=== PATIENT | female | born 1990 | race Caucasian/White ===

== ENCOUNTER 2016-05-19 14:59 | Emergency (ER) | payer OTHER ==
[2016-05-19 15:06] VITALS: BP 107/69; PULSE 93; TEMP 99; BMI 21.0
--- NOTE | 2016-05-19 16:50 | PDOC ---
History of Present Illness - General Chief Complaint: Sore Throat Stated Complaint: FEVER, THROAT PAIN, VOMITING Time Seen by Provider: 05/19/16 15:35 - History of Present Illness Initial Comments: 05/19/16 16:15 CHIEF COMPLAINT: sore throat, fever, vomiting HISTORY OF PRESENT ILLNESS: 26 yo F with no PMH presents to [facility] with sore throat and fever x 3 days and vomiting x 2 days. Patient reports that her sister had strep last week and "I wouldn't be surprised if I got it from her." She reports TMax 104 and has been taking Tylenol, which does bring the temperature down. She reports three episodes of vomiting 2 days ago, and two episodes yesterday but none today. She also complains of body aches and fatigue. PAST MEDICAL HISTORY: Denies past medical history FAMILY HISTORY: Denies SOCIAL HISTORY: Denies tobacco, alcohol, illicit drug use. SURGICAL HISTORY: Denies ALLERGIES: No known drug allergies REVIEW OF SYSTEMS General/Constitutional: Fever x 3 days. Denies weakness, weight change. HEENT: Sore throat. Denies change in vision. Denies ear pain or discharge. Cardiovascular: Denies chest pain or shortness of breath. Respiratory: Denies cough, wheezing, or hemoptysis. Gastrointestinal: Vomiting x 2 days. diarrhea or constipation. Denies rectal bleeding. Genitourinary: Denies dysuria, frequency, or change in urination. Musculoskeletal: Denies joint or muscle swelling or pain. Denies neck or back pain. Skin and breasts: Denies rash or easy bruising. Neurologic: Denies headache, vertigo, loss of consciousness, or loss of sensation. PHYSICAL EXAM General Appearance: Well-appearing, appropriately dressed. No apparent distress , no intoxication. HEENT: Erythematous tonsils with exudate bilaterally. EOMI, PERRLA, normal voice. No conjunctival pallor. No photophobia, scleral icterus. Neck: Supple. Trachea midline. No tenderness, rigidity, carotid bruit, stridor , lymphadenopathy, or thyromegaly. Respiratory/Chest: Lungs CTAB. Cardiovascular: RRR. S1, S2. Gastrointestinal/Abdominal: Normal bowel sounds. Abdomen soft, non-distended. No tenderness or rebound tenderness. No organomegaly, pulsatile mass, guarding , hernia, hepatomegaly, splenomegaly. Musculoskeletal/Extremities: Normal inspection. FROM of all extremities, normal capillary refill. Pelvis Stable. No CVA tenderness. No tenderness to extremities, pedal edema, swelling, erythema or deformity. Integumentary: Appropriate color, dry, warm. No cyanosis, erythema, jaundice or rash Neurologic: manager apple II-XII intact. Fully oriented, alert. Appropriate mood/affect. Motor strength 5/5. No appreciable EOM palsy, facial droop or sensory deficit. Past History - Past Medical History Allergies/Adverse Reactions: Allergies Allergy/AdvReac Type Severity Reaction Status Date / Time No Known Allergies Allergy Verified 05/19/16 15:06 Home Medications: Ambulatory Orders NK [No Known Home Medication] 05/19/16 Asthma: No Cancer: No Cardiac Disorders: No Diabetes: No HTN: No Seizures: No Thyroid Disease: No - Psycho/Social/Smoking Cessation Hx Anxiety: No Suicidal Ideation: No Smoking History: Never smoked Have you smoked in the past 12 months: No Hx Alcohol Use: No Drug/Substance Use Hx: No Substance Use Type: None Hx Substance Use Treatment: No *Physical Exam - Vital Signs Last Vital Signs Temp Pulse Resp BP Pulse Ox 99.0 F 93 H 20 107/69 98 05/19/16 15:03 05/19/16 15:03 05/19/16 15:03 05/19/16 15:03 05/19/16 15:03 *DC/Admit/Observation/Transfer Diagnosis at time of Disposition: Strep pharyngitis - Discharge Dispostion Disposition: HOME Condition at time of disposition: Stable Admit: No - Patient Instructions Printed Discharge Instructions: DI for Strep Throat Additional Instructions: Please follow up with a primary care doctor in 3-5 days if symptoms persist. Please take Tylenol or Motrin for any fever. If you experience persistent vomiting, diarrhea, fever unrelieved by fever, or any new or worsening symptoms , please return to the ER.
[2016-05-19] MEDS ORDERED: PENICILLIN G BENZATHINE 1,200,000 UNIT/2 ML PFS IM ONE (17:06)
[2016-05-19] MEDS ORDERED: PENICILLIN G BENZATHINE 2,400,000 UNIT/4 ML PFS ONE (17:27)
== END 2016-05-19 17:48 | disposition home or self-care (01) ==
LOC: JERFT 14:59
DX: J02.0 Streptococcal pharyngitis (principal)
CPT/HCPCS: 87070; 87430; 87804; 96372; 99281-25

== ENCOUNTER 2016-11-26 09:03 | Emergency (ER) | payer OTHER ==
[2016-11-26 09:10] VITALS: BP 116/67; PULSE 96; TEMP 99.5; BMI 21.9
[2016-11-26] MEDS ORDERED: IBUPROFEN 600 MG TABLET (FP) PO ONE ×2 (09:49→09:51)
--- NOTE | 2016-11-26 09:51 | PDOC ---
History of Present Illness - General Chief Complaint: Cold Symptoms Stated Complaint: VOMITING, THROAT PAIN Time Seen by Provider: 11/26/16 09:30 History Source: Patient Exam Limitations: No Limitations - History of Present Illness Initial Comments: 11/26/16 09:46 Patient is a 26 year old female, no significant medical history currently on no medication reports bilateral tonsillar exudates, nausea, sore throat with dysphagia, no cough. Low-grade fever. Past Medical History: Denies. Allergies: No known allergies Medications: None Family History: Non-contributory Social History: Denies smoking, alcohol use, or IVDU Review of Systems GENERAL/CONSTITUTIONAL: Fever. No weakness. No weight change. HEAD, EYES, EARS, NOSE AND THROAT: No change in vision. No ear pain or discharge. Sore throat, dysphagia, bilateral tonsilar exudates. CARDIOVASCULAR: No chest pain or shortness of breath. RESPIRATORY: No cough, wheezing, or hemoptysis. GASTROINTESTINAL: No nausea, vomiting, diarrhea or constipation. No rectal bleeding. GENITOURINARY: No dysuria, frequency, or change in urination. MUSCULOSKELETAL: No joint or muscle swelling or pain. No neck or back pain. SKIN AND BREASTS: No rash or easy bruising. NEUROLOGIC: No headache, vertigo, loss of consciousness, or loss of sensation. PSYCHIATRIC: No depression or anxiety. ENDOCRINE: No increased thirst. No abnormal weight change. HEMATOLOGIC/LYMPHATIC: No anemia, easy bleeding, or history of blood clots. ALLERGIC/IMMUNOLOGIC: No hives or skin allergy. No latex allergy. Physical Exam: GENERAL: The patient is awake, alert, and fully oriented, in no acute distress. EYES: Pupils equal, round and reactive to light, extraocular movements intact, sclera anicteric, conjunctiva clear. ENT: Ears normal, nares patent, oropharynx is erythematous with bilateral tonsillar exudates. Moist mucous membranes. No uvula deviation NECK: Normal range of motion, supple without lymphadenopathy, JVD, or masses. LUNGS: Breath sounds equal, clear to auscultation bilaterally. No wheezes, and no crackles. HEART: Regular rate and rhythm, normal S1 and S2 without murmur, rub or gallop. ABDOMEN: Soft, nontender, normoactive bowel sounds. No guarding, no rebound. No masses. No bruising or abrasions MUSCULOSKELETAL: Normal range of motion, no edema. No clubbing or cyanosis. No cords, erythema, or tenderness. No CVA Tenderness with fist. NEUROLOGICAL: Cranial nerves II through XII grossly intact. Normal speech, normal gait. SKIN: Warm, Dry, normal turgor, no rashes or lesions noted. Past History - Past Medical History Allergies/Adverse Reactions: Allergies Allergy/AdvReac Type Severity Reaction Status Date / Time No Known Allergies Allergy Verified 11/26/16 09:07 Home Medications: Ambulatory Orders Amox-Tr/K Cl [Augmentin - 875Mg Tablet] 1 tab PO BID #14 tablet 11/26/16 Asthma: No Cancer: No Cardiac Disorders: No Diabetes: No HTN: No Seizures: No Thyroid Disease: No Other medical history: DENIES. - Surgical History Abdominal Surgery: Yes - Suicide/Smoking/Psychosocial Hx Smoking History: Current every day smoker Have you smoked in the past 12 months: No Number of Cigarettes Smoked Daily: 2 Information on smoking cessation initiated: No Hx Alcohol Use: No Drug/Substance Use Hx: No Substance Use Type: None Hx Substance Use Treatment: No *Physical Exam - Vital Signs Last Vital Signs Temp Pulse Resp BP Pulse Ox 99.5 F 96 H 18 116/67 99 11/26/16 09:07 11/26/16 09:07 11/26/16 09:07 11/26/16 09:07 11/26/16 09:07 Medical Decision Making - Medical Decision Making 11/26/16 09:51 A/P: Patient here for evaluation of dysphasia, bilateral tonsillar edema, will DC Patient with Augmentin patient recently had dental procedure pulled tooth, Augmentin would be best choice at this time to treat the strep as well as any secondary infection that may have occurred from dental surgery. Motrin 600 mg given while in emergency department . Warm salt water gargles, change toothbrush in 3 days, instructions given to patient. Rapid strep was sent however centor criteria recommends treatment based on patient's symptoms and presentation. I discussed the physical exam findings and final diagnoses with the patient. I answered all of the patient's questions. The patient was satisfied with the care received and felt comfortable with the discharge plan and treatment plan. The patient will call to arrange follow-up and will return to the Emergency Department with any new, persistent or worsening symptoms. *DC/Admit/Observation/Transfer Diagnosis at time of Disposition: Strep pharyngitis - Discharge Dispostion Disposition: HOME Condition at time of disposition: Good Admit: No - Prescriptions Prescriptions: Amox-Tr/K Cl [Augmentin - 875Mg Tablet] 1 tab PO BID #14 tablet - Patient Instructions Printed Discharge Instructions: DI for Strep Throat Additional Instructions: 1. Increase fluid. 2. Pedialyte or Gatorade. 3. Please change toothbrush within 3 days of starting antibiotics. 4. Warm saltwater gargles. 5. Please follow up with PMD in 3 days if symptoms not resolving. 6. Please return to the ER unable to drink or eat, increased fever or other concerns May take Motrin [id number] 600 mg every 8 hours as needed - Post Discharge Activity Forms/Work/School Notes: Back to Work
== END 2016-11-26 09:57 | disposition home or self-care (01) ==
LOC: JERFT 09:03
DX: J02.0 Streptococcal pharyngitis (principal); F17.210 Nicotine dependence, cigarettes, uncomplicated
CPT/HCPCS: 87070; 87077; 87430; 99281-25

== ENCOUNTER 2017-06-20 10:30 | Emergency (ER) | payer OTHER ==
[2017-06-20 10:45] VITALS: BP 105/63; PULSE 90; TEMP 98.6; BMI 22.8
[2017-06-20] MEDS ORDERED: IBUPROFEN 100 MG/5 ML UNIT DOSE CUPS ONE (11:36)
[2017-06-20] MEDS ORDERED: IBUPROFEN 100 MG/5 ML UNIT DOSE CUPS PO ONE (11:36)
--- NOTE | 2017-06-20 11:37 | PDOC ---
History of Present Illness - General Chief Complaint: Sore Throat Stated Complaint: THROAT PAIN Time Seen by Provider: 06/20/17 11:02 History Source: Patient Exam Limitations: No Limitations - History of Present Illness Initial Comments: 06/20/17 11:58 Patient is a 27-year-old female who presents to the ER complaining of sore throat. She states her symptoms began on Tuesday06/18/17. Patient states that her symptoms got worse last night and she woke up with chills, subjective fevers and difficulty swallowing. She is also complaining of left ear pain. Patient admits to a dry cough to try and clear her throat. Denies runny nose, shortness of breath, chest pain, nausea, vomiting, diarrhea. Past History - Travel Traveled outside of the country in the last 30 days: No Close contact w/someone who was outside of country & ill: No - Past Medical History Allergies/Adverse Reactions: Allergies Allergy/AdvReac Type Severity Reaction Status Date / Time No Known Allergies Allergy Verified 06/20/17 10:42 Home Medications: Ambulatory Orders NK [No Known Home Medication] 06/20/17 Asthma: No Cancer: No Cardiac Disorders: No CVA: No COPD: No Diabetes: No HTN: No Seizures: No Thyroid Disease: No - Surgical History Abdominal Surgery: Yes - Suicide/Smoking/Psychosocial Hx Smoking History: Current every day smoker Have you smoked in the past 12 months: No Number of Cigarettes Smoked Daily: 2 Information on smoking cessation initiated: Yes 'Breaking Loose' booklet given: 06/20/17 Hx Alcohol Use: No Drug/Substance Use Hx: No Substance Use Type: None Hx Substance Use Treatment: No Review of Systems - Review of Systems Able to Perform ROS?: Yes Comments:: 06/20/17 11:37 CONSTITUTIONAL: Present: subjective fever, chills Absent diaphoresis, generalized weakness, malaise, loss of appetite HEENT: Present: throat pain, difficulty swallowing. Absent: rhinorrhea, nasal congestion, throat pain, throat swelling, difficulty swallowing, mouth swelling , ear pain, eye pain, visual Changes CARDIOVASCULAR: Absent: chest pain, loss of consciousness, palpitations, irregular heart rate, peripheral edema RESPIRATORY: Present: dry cough Absent: shortness of breath, dyspnea with exertion, orthopnea , wheezing, stridor, hemoptysis GASTROINTESTINAL: Absent: abdominal pain, abdominal distension, nausea, vomiting, diarrhea, constipation, melena, hematochezia SKIN: Absent: rash, itching, pallor NEUROLOGIC: Absent: headache, focal weakness or paresthesias, dizziness, unsteady gait, seizure, mental status changes, bladder or bowel incontinence Is the patient limited Azeri proficient: No *Physical Exam - Vital Signs Last Vital Signs Temp Pulse Resp BP Pulse Ox 98.6 F 90 18 105/63 100 06/20/17 10:43 06/20/17 10:43 06/20/17 10:43 06/20/17 10:43 06/20/17 10:43 - Physical Exam Comments: 06/20/17 11:37 GENERAL: Well developed, well nourished. Awake and alert. No acute distress. HEENT: Normocephalic, atraumatic. PERRLA, EOMI. No conjunctival pallor. Sclera are non- icteric. Moist mucous membranes. Oropharynx with posterior erythema and exudate b/l. 1+ tonsils with no uvular deviation. L TM with fluid, no erythema or bulging. NECK: Supple. Full ROM. No JVD. Carotid pulses 2+ and symmetric, without bruits. No thyromegaly. No lymphadenopathy. CARDIOVASCULAR: Regular rate and rhythm. No murmurs, rubs, or gallops. Distal pulses are 2+ and symmetric. PULMONARY: No evidence of respiratory distress. Lungs clear to auscultation bilaterally. No wheezing, rales or rhonchi. SKIN: Warm and dry. Normal capillary refill. No rashes. No jaundice. NEUROLOGICAL: Alert, awake, appropriate. Cranial nerves 2-12 intact. No deficits to light touch and temperature in face, upper extremities and lower extremities. No motor deficits in the in face, upper extremities and lower extremities. Normoreflexic in the upper and lower extremities. Normal speech. Toes are down- going bilaterally. Gait is normal without ataxia. Medical Decision Making - Medical Decision Making 06/20/17 12:01 Patient's 27-year-old female no past medical history of substance emergency department with 3 days of sore throat. Centor criteria is a 2 at this time. We' ll rapid strep and give Motrin. Reevaluate 06/20/17 12:45 Strep is negative at this time. Culture sent for further evaluation. Will d.c home with symptomatic treatment. Return precautions given. Pt. understands all dc instructions and all questions were answered. *DC/Admit/Observation/Transfer Diagnosis at time of Disposition: Pharyngitis Qualifiers: Pharyngitis/tonsillitis etiology: unspecified etiology Qualified Code(s): J02.9 - Acute pharyngitis, unspecified - Discharge Dispostion Disposition: HOME Condition at time of disposition: Stable Admit: No - Referrals Referrals: Surendra Gonzalez MD [Staff Physician] - - Patient Instructions Printed Discharge Instructions: DI for Pharyngitis/Tonsillopharyngitis -- Adult Additional Instructions: You have a sore throat. Your strep test was negative today. A culture has been sent for further testing. Results will be back in 2-3 days. You may take Motrin 800 mg every 8 hours as needed for pain or fever. Warm water gargles and cough drops and just may also help her symptoms. Please throw way your toothbrush 3 days into treatment to prevent reinfection. Please follow up with your primary care doctor next week. Return to emergency department if you have worsening pain, difficulty swallowing , changes in your voice, lightheadedness, dizziness, or any changes in your symptoms. - Post Discharge Activity Forms/Work/School Notes: Back to Work
== END 2017-06-20 12:49 | disposition home or self-care (01) ==
LOC: JERFT 10:30
DX: J02.9 Acute pharyngitis, unspecified (principal); F17.210 Nicotine dependence, cigarettes, uncomplicated
CPT/HCPCS: 87070; 87430; 99281-25

== ENCOUNTER 2017-07-07 13:14 | Emergency (ER) | payer OTHER ==
[2017-07-07 13:28] VITALS: BP 116/69; PULSE 117; TEMP 100.1; BMI 23.8
--- NOTE | 2017-07-07 13:54 | PDOC ---
History of Present Illness - General Chief Complaint: Cold Symptoms Stated Complaint: COUGH, CHILLS Time Seen by Provider: 07/07/17 13:54 History Source: Patient Exam Limitations: No Limitations - History of Present Illness Initial Comments: 07/07/17 14:36 Chief complaint: Fever and cough Patient is a healthy 27-year-old female with 1 day history of fever, cough and runny nose. Patient is eating and drinking. Patient took TheraFlu prior to coming here. GENERAL/CONSTITUTIONAL: No fever, weakness. dizziness HEAD, EYES, EARS, NOSE AND THROAT: No change in vision. No ear pain or discharge. No sore throat. CARDIOVASCULAR: No chest pain RESPIRATORY: No shortness of breath or cough GASTROINTESTINAL: No pain, nausea, vomiting, diarrhea or constipation GENITOURINARY: No dysuria MUSCULOSKELETAL: No neck or back pain SKIN: No rash NEUROLOGIC: No headache, vertigo, loss of consciousness, or loss of sensation. GENERAL: The patient is awake, alert, and fully oriented, in no acute distress. HEAD: Normal with no signs of trauma. EYES: Pupils equal, round and reactive to light, sclera anicteric, conjunctiva clear. ENT: pharynx: no erythema, no exudate, uvula midline NECK: supple CHEST: clear, nontender, rr ABD: soft, nontender EXTREMITIES: Normal range of motion, no edema. NEUROLOGICAL: Normal speech, normal gait. SKIN: Warm, Dry Past History - Past Medical History Allergies/Adverse Reactions: Allergies Allergy/AdvReac Type Severity Reaction Status Date / Time No Known Allergies Allergy Verified 07/07/17 13:16 Home Medications: Ambulatory Orders Ibuprofen 800 mg PO TID #30 tablet 06/20/17 Ibuprofen [Motrin -] 600 mg PO QID #28 tablet 07/07/17 Asthma: No Cancer: No Cardiac Disorders: No CVA: No COPD: No Diabetes: No HTN: No Seizures: No Thyroid Disease: No - Surgical History Abdominal Surgery: Yes - Suicide/Smoking/Psychosocial Hx Smoking History: Current every day smoker Have you smoked in the past 12 months: Yes Number of Cigarettes Smoked Daily: 2 Information on smoking cessation initiated: Yes 'Breaking Loose' booklet given: 07/07/17 Hx Alcohol Use: No Drug/Substance Use Hx: No Substance Use Type: None Hx Substance Use Treatment: No *Physical Exam - Vital Signs Last Vital Signs Temp Pulse Resp BP Pulse Ox 100.1 F H 117 H 20 116/69 100 07/07/17 13:17 07/07/17 13:17 07/07/17 13:17 07/07/17 13:17 07/07/17 13:17 Medical Decision Making - Medical Decision Making 07/07/17 14:37 Healthy 27-year-old female with 1 day of upper respiratory symptoms, no sore throat or clinical signs of strep. Patient took TheraFlu just prior to coming here, will give her Motrin, explained all about viral upper respiratory illness. Discussed issues, findings, results, applicable medications and treatments and follow-up. All these were understood and all questions were answered *DC/Admit/Observation/Transfer Diagnosis at time of Disposition: Upper respiratory infection Qualifiers: URI type: unspecified URI Qualified Code(s): J06.9 - Acute upper respiratory infection, unspecified - Discharge Dispostion Disposition: HOME Condition at time of disposition: Stable Decision to Admit order: No - Prescriptions Prescriptions: Ibuprofen [Motrin -] 600 mg PO QID #28 tablet - Referrals - Patient Instructions Printed Discharge Instructions: DI for Viral Upper Respiratory Infection -- Adult Additional Instructions: Drink 2-3 L of water daily Take Tylenol 650 mg every 4 hours or Motrin 600 mg every 6 hours for fever and pain Return to the nearest ER if short of breath, unable to swallow or feeling sicker Followup with your doctor in one to 2 days - Post Discharge Activity
[2017-07-07] MEDS ORDERED: IBUPROFEN 600 MG TABLET (FP) PO ONE ×3 (14:03→14:15)
== END 2017-07-07 14:20 | disposition home or self-care (01) ==
LOC: JERFT 13:14
DX: J06.9 Acute upper respiratory infection, unspecified (principal); F17.210 Nicotine dependence, cigarettes, uncomplicated
CPT/HCPCS: 99281-25

== ENCOUNTER 2017-10-15 15:12 | Emergency (ER) | payer OTHER ==
[2017-10-15 15:28] VITALS: BP 115/67; PULSE 89; TEMP 98; BMI 23.8
--- NOTE | 2017-10-15 15:53 | PDOC ---
History of Present Illness - General Chief Complaint: Bite Stated Complaint: BEE STING - History of Present Illness Initial Comments: 10/15/17 15:52 27 -year-old female presents for evaluation of bee sting on the lateral aspect of her right shoulder. She has no associated symptoms. Past History - Past Medical History Allergies/Adverse Reactions: Allergies Allergy/AdvReac Type Severity Reaction Status Date / Time No Known Allergies Allergy Verified 10/15/17 15:20 Home Medications: Ambulatory Orders NK [No Known Home Medication] 10/15/17 Asthma: No Cancer: No Cardiac Disorders: No CVA: No COPD: No Diabetes: No HTN: No Seizures: No Thyroid Disease: No - Surgical History Abdominal Surgery: Yes - Suicide/Smoking/Psychosocial Hx Smoking History: Never smoked Have you smoked in the past 12 months: Yes Number of Cigarettes Smoked Daily: 2 Information on smoking cessation initiated: No 'Breaking Loose' booklet given: 10/13/17 Hx Alcohol Use: No Drug/Substance Use Hx: No Substance Use Type: None Hx Substance Use Treatment: No Review of Systems - Review of Systems Integumentary: Yes: See HPI All Other Systems: Reviewed and Negative *Physical Exam - Vital Signs Last Vital Signs Temp Pulse Resp BP Pulse Ox 98 F 89 16 115/67 100 10/15/17 15:21 10/15/17 15:21 10/15/17 15:21 10/15/17 15:21 10/15/17 15:21 - Physical Exam Comments: HEAD: NC/AT EYES: Conjuntiva clear Ears: Canals and TM's normal NOSE: No d/c THROAT: Moist mucous membrances, oral pharanx clear, uvula midline NECK: Supple without adenopathy CARDIAC: S1 S2 LUNGS: CTA Full and Equal breath sounds ABDOMEN: Soft NT ND MS: Full ROM in all joints without edema NEUROLOGIC: No gross sensory or motor deficits, NVID SKIN: Normal color and temperature no lesions or rashes 10/15/17 15:52 Medical Decision Making - Medical Decision Making 10/15/17 15:52Oak lysed skin reaction in the site of the bee sting no other associated symptoms 50 minutes prior to arrival *DC/Admit/Observation/Transfer Diagnosis at time of Disposition: Bee sting - Discharge Dispostion Disposition: HOME Condition at time of disposition: Stable Decision to Admit order: No - Referrals Referrals: ON STAFF,NOT [Primary Care Provider] - - Patient Instructions Printed Discharge Instructions: DI for Insect Bites and Stings Additional Instructions: Return to the emergency room should he develop any shortness of breath or have any concerns otherwise follow-up with the primary care physician once 2 days further evaluation and treatment options. - Post Discharge Activity
== END 2017-10-15 15:57 | disposition home or self-care (01) ==
LOC: JERFT 15:12
DX: T63.411A Toxic effect of venom of centipedes and venomous millipedes, accidental (unintentional), initial encounter (principal); Y92.89 Other specified places as the place of occurrence of the external cause
CPT/HCPCS: 99281-25

== ENCOUNTER 2018-04-01 11:58 | Emergency (ER) | payer OTHER ==
[2018-04-01 12:02] VITALS: BP 121/54; PULSE 91; TEMP 98.1; BMI 23.8
--- NOTE | 2018-04-01 12:33 | PDOC ---
History of Present Illness - General Chief Complaint: Cold Symptoms Stated Complaint: SINUS INFECTION Time Seen by Provider: 04/01/18 12:26 - History of Present Illness Initial Comments: 04/01/18 12:31 27-year-old female presents for evaluation of sinus congestion nasal pressure chills and night sweats without fever and headache 3 days. She has no comorbidities. Past History - Past Medical History Allergies/Adverse Reactions: Allergies Allergy/AdvReac Type Severity Reaction Status Date / Time No Known Allergies Allergy Verified 04/01/18 12:02 Home Medications: Ambulatory Orders Amox-Tr/K Cl [Augmentin - 875Mg Tablet] 1 tab PO BID #20 tablet 04/01/18 Budesonide [Rhinocort Allergy] 1 spray NS ONCE #1 spray.pump 04/01/18 Asthma: No Cancer: No Cardiac Disorders: No CVA: No COPD: No Diabetes: No HTN: No Seizures: No Thyroid Disease: No - Surgical History Abdominal Surgery: Yes - Suicide/Smoking/Psychosocial Hx Smoking History: Current every day smoker Have you smoked in the past 12 months: Yes Number of Cigarettes Smoked Daily: 2 Information on smoking cessation initiated: No 'Breaking Loose' booklet given: 10/13/17 Hx Alcohol Use: No Drug/Substance Use Hx: No Substance Use Type: None Hx Substance Use Treatment: No Review of Systems - Review of Systems Constitutional: Yes: Chills, Malaise, Night Sweats. No: Fever HEENTM: Yes: Nose Congestion Neurological: Yes: Headache *Physical Exam - Vital Signs Last Vital Signs Temp Pulse Resp BP Pulse Ox 98.1 F 91 H 18 121/54 L 100 04/01/18 12:00 04/01/18 12:00 04/01/18 12:00 04/01/18 12:00 04/01/18 12:00 - Physical Exam Comments: 04/01/18 12:32 HEAD: NC/AT EYES: Conjuntiva clear Ears: Canals and TM's normal NOSE: Turbinates injected THROAT: Moist mucous membrances, oral pharanx clear, uvula midline NECK: Supple without adenopathy CARDIAC: S1 S2 LUNGS: CTA Full and Equal breath sounds ABDOMEN: Soft NT ND MS: Full ROM in all joints without edema NEUROLOGIC: No gross sensory or motor deficits, NVID SKIN: Normal color and temperature no lesions or rashes Moderate Sedation - Procedure Monitoring Vital Signs: Procedure Monitoring Vital Signs Temperature 98.1 F 04/01/18 12:00 Pulse Rate 91 H 04/01/18 12:00 Respiratory Rate 18 04/01/18 12:00 Blood Pressure 121/54 L 04/01/18 12:00 O2 Sat by Pulse Oximetry (%) 100 04/01/18 12:00 *DC/Admit/Observation/Transfer Diagnosis at time of Disposition: Sinusitis - Discharge Dispostion Disposition: HOME Condition at time of disposition: Stable Decision to Admit order: No - Prescriptions Prescriptions: Amox-Tr/K Cl [Augmentin - 875Mg Tablet] 1 tab PO BID #20 tablet Budesonide [Rhinocort Allergy] 1 spray NS ONCE #1 spray.pump - Referrals Referrals: Kwame Arenas MD [Staff Physician] - - Patient Instructions Printed Discharge Instructions: Sinusitis, DI for Sinusitis Additional Instructions: Please take the antibiotics and nasal spray as directed. Return to the emergency room should symptoms worsen or go unresolved. Tylenol and Motrin for body aches and chills. Follow-up with ear nose and throat doctor in 1-2 days for further evaluation and treatment options. - Post Discharge Activity
== END 2018-04-01 12:40 | disposition home or self-care (01) ==
LOC: JERFT 11:58
DX: J32.9 Chronic sinusitis, unspecified (principal); F17.210 Nicotine dependence, cigarettes, uncomplicated
CPT/HCPCS: 99281-25

== ENCOUNTER 2018-04-17 16:43 | Emergency (ER) | payer OTHER ==
--- NOTE | 2018-04-17 16:54 | PDOC ---
Rapid Medical Evaluation Time Seen by Provider: 04/17/18 16:51 Medical Evaluation: Allergies Allergy/AdvReac Type Severity Reaction Status Date / Time No Known Allergies Allergy Verified 04/01/18 12:02 04/17/18 16:53 I have performed a brief in-person evaluation of this patient. The patient presents with a chief complaint of: abdominal pain x 2 weeks. States abdominal bloating and pain intermittently. Denies nausea, vomiting or diarrhea Pertinent physical exam findings: NAD even and unlabored breathing no tenderness of abdomen +bowel sounds I have ordered the following: urine preg The patient will proceed to the ED for further evaluation. Discharge Disposition - Diagnosis Abdominal pain - Referrals - Patient Instructions - Post Discharge Activity
[2018-04-17 16:55] VITALS: BP 123/71; PULSE 87; TEMP 98.2; BMI 23.8
--- NOTE | 2018-04-17 20:24 | PDOC ---
*Physical Exam - Vital Signs Last Vital Signs Temp Pulse Resp BP Pulse Ox 98.2 F 87 18 123/71 99 04/17/18 16:52 04/17/18 16:52 04/17/18 16:52 04/17/18 16:52 04/17/18 16:52 ED Treatment Course - LABORATORY CBC & Chemistry Diagram: 04/17/18 20:44 04/17/18 20:44 Medical Decision Making - Medical Decision Making 04/17/18 20:24 Patient seen by the advanced practice provider under my direct supervision. Ancillary testing reviewed as necessary. I agree with plan as outlined by the advanced practice provider. *DC/Admit/Observation/Transfer Diagnosis at time of Disposition: Left flank pain - Discharge Dispostion Disposition: HOME Condition at time of disposition: Stable - Prescriptions Prescriptions: Mag Hydrox/Al Hydrox/Simeth [Mylanta Suspension -] 30 ml PO Q6H #1 bottle - Referrals - Patient Instructions Printed Discharge Instructions: DI for Flank Pain Additional Instructions: take maalox as prescribed follow up with your doctor as soon as possible. Additional Instructions: * Please call your personal physician to report your Emergency Department visit and to report your progress, if any. * If there is no improvement in symptoms in 2 days call your physician. * Return to the Emergency Department for any worsening symptoms. - Post Discharge Activity Forms/Work/School Notes: Back to Work
--- NOTE | 2018-04-17 20:47 | PDOC ---
History of Present Illness - General Chief Complaint: Pain, Acute Stated Complaint: STOMACH PAIN Time Seen by Provider: 04/17/18 16:51 History Source: Patient - History of Present Illness Initial Comments: 04/17/18 22:21 27-year-old Female complaining of left flank pain radiating to the left groin for the last 2 days and bloating. Denies nausea, vomiting, diarrhea, fever,'s chills, vaginal discharge or pain. Patient does report frequency urination denies hematuria. Patient reports that this similar incident happened 1 month ago and was seen at an outside hospital where she was given something for gas in the pain relieved. Past History - Past Medical History Allergies/Adverse Reactions: Allergies Allergy/AdvReac Type Severity Reaction Status Date / Time No Known Allergies Allergy Verified 04/01/18 12:02 Home Medications: Ambulatory Orders Amox-Tr/K Cl [Augmentin - 875Mg Tablet] 1 tab PO BID #20 tablet 04/01/18 Budesonide [Rhinocort Allergy] 1 spray NS ONCE #1 spray.pump 04/01/18 Mag Hydrox/Al Hydrox/Simeth [Mylanta Suspension -] 30 ml PO Q6H #1 bottle Asthma: No Cancer: No Cardiac Disorders: No CVA: No COPD: No Diabetes: No HTN: No Seizures: No Thyroid Disease: No - Surgical History Abdominal Surgery: Yes - Immunization History Immunization Up to Date: No - Suicide/Smoking/Psychosocial Hx Smoking History: Current every day smoker Have you smoked in the past 12 months: Yes Number of Cigarettes Smoked Daily: 3 Information on smoking cessation initiated: No 'Breaking Loose' booklet given: 10/13/17 Hx Alcohol Use: No Drug/Substance Use Hx: No Substance Use Type: None Hx Substance Use Treatment: No Review of Systems - Review of Systems Able to Perform ROS?: Yes Is the patient limited Serbian proficient: No Constitutional: No: Symptoms Reported, See HPI, Chills, Diaphoresis, Fever, Loss of Appetite, Malaise, Night Sweats, Weakness, Weight Stable, Unintentional Wgt. Loss, Unexplained wgt Loss, Other ABD/GI: Yes: Nausea, Abdominal cramping : Yes: Frequency, Flank Pain. No: Symptoms Reported, See HPI, Burning, Dysuria, Discharge, Hematuria, Incontinence, Pain, Urgency, Testicular Mass, Testicular Swelling, Lesions, Testicular Pain, Other Musculoskeletal: No: Symptoms Reported, See HPI, Back Pain, Gout, Joint Pain, Joint Swelling, Muscle Pain, Muscle Weakness, Neck Pain, Joint Stiffness, Other *Physical Exam - Vital Signs Last Vital Signs Temp Pulse Resp BP Pulse Ox 98.2 F 87 18 123/71 99 04/17/18 16:52 04/17/18 16:52 04/17/18 16:52 04/17/18 16:52 04/17/18 16:52 - Physical Exam General Appearance: Yes: Appropriately Dressed Respiratory/Chest: positive: Lungs Clear, Normal Breath Sounds Gastrointestinal/Abdominal: positive: Normal Bowel Sounds, Tender, Soft (LLQ) Musculoskeletal: positive: CVA Tenderness (L) Extremity: positive: Normal Capillary Refill, Normal Inspection Integumentary: positive: Normal Color, Dry, Warm Neurologic: positive: Fully Oriented, Alert, Normal Mood/Affect Moderate Sedation - Procedure Monitoring Vital Signs: Procedure Monitoring Vital Signs Temperature 98.2 F 04/17/18 16:52 Pulse Rate 87 04/17/18 16:52 Respiratory Rate 18 04/17/18 16:52 Blood Pressure 123/71 04/17/18 16:52 O2 Sat by Pulse Oximetry (%) 99 04/17/18 16:52 ED Treatment Course - LABORATORY CBC & Chemistry Diagram: 04/17/18 20:44 04/17/18 20:44 Progress Note - Progress Note Progress Note: left flank pain P: labs UA : negative Spiral CT : negative will give maalox for bloating. patient to follow up with PCP. patient nontoxic appearing. tolerating PO no vomiting.afebrile. will d/c home with strict return precautions,. *DC/Admit/Observation/Transfer Diagnosis at time of Disposition: Left flank pain - Discharge Dispostion Disposition: HOME Condition at time of disposition: Stable - Prescriptions Prescriptions: Mag Hydrox/Al Hydrox/Simeth [Mylanta Suspension -] 30 ml PO Q6H #1 bottle - Referrals - Patient Instructions Printed Discharge Instructions: DI for Flank Pain Additional Instructions: take maalox as prescribed follow up with your doctor as soon as possible. Additional Instructions: * Please call your personal physician to report your Emergency Department visit and to report your progress, if any. * If there is no improvement in symptoms in 2 days call your physician. * Return to the Emergency Department for any worsening symptoms. - Post Discharge Activity Forms/Work/School Notes: Back to Work
[2018-04-17 20:53] LABS: BASO % 0.6 % (0-2.0); EOS % 1.4 % (0-4.5); HEMATOCRIT 39.6 % (32.4-45.2); HEMOGLOBIN 13.9 GM/dL (10.7-15.3); LYMPH % 38.6 % (8-40); MCH 31.2 pg (25.7-33.7); MCHC 35.1 g/dl (32.0-36.0); MEAN CELL VOLUME 89.1 fl (80-96); MEAN PLT VOLUME 8.2 fl (7.5-11.1); MONO % 6.2 % (3.8-10.2); NEUT % 53.2 % (42.8-82.8); PLATELET COUNT 277 K/MM3 (134-434); RBC 4.44 M/mm3 (3.60-5.2); WHITE BLOOD COUNT 8.6 K/mm3 (4.0-10.0)
[2018-04-17 21:08] LABS: URINE APPEARANCE CLEAR; URINE BILIRUBIN NEGATIVE (<2.0 mg/dL); URINE COLOR LTYELLOW; URINE GLUCOSE (UA) NEGATIVE (NEGATIVE); URINE KETONE NEGATIVE (NEGATIVE); URINE LEUK ESTERASE NEGATIVE (NEGATIVE); URINE NITRITE NEGATIVE (NEGATIVE); URINE PROTEIN NEGATIVE (NEGATIVE); URINE UROBILINOGEN NEGATIVE mg/dL (0.2-1.0)
[2018-04-17] MEDS ORDERED: DICYCLOMINE HCL 10 MG CAPSULE PO ONE (21:20)
[2018-04-17] MEDS ORDERED: MAG HYDROX/AL HYDROX/SIMETH 30 ML UNIT-DOSE CUP PO ONE (21:20)
[2018-04-17 21:41] LABS: ALBUMIN 4.4 g/dl (3.4-5.0); ALK PHOS 59 U/L (45-117); ANION GAP 8 MMOL/L (8-16); BILIRUBIN,TOTAL 0.4 mg/dL (0.2-1); BLOOD UREA NITROGEN 10 mg/dL (7-18); CALCIUM 9.4 mg/dL (8.5-10.1); CHLORIDE 101 mmol/L (98-107); CO2 26 mmol/L (21-32); CREATININE 0.5 mg/dL (0.55-1.3); GLUCOSE,RANDOM 94 mg/dL (74-106); POTASSIUM 3.9 mmol/L (3.5-5.1); SGOT/AST 14 U/L (15-37); SGPT/ALT 22 U/L (13-61); SODIUM 135 mmol/L (136-145); TOT PROT 7.9 g/dl (6.4-8.2)
[2018-04-17] MEDS ORDERED: MAG HYDROX/AL HYDROX/SIMETH 30 ML UNIT-DOSE CUP ONE (22:28)
[2018-04-17] MEDS ORDERED: DICYCLOMINE HCL 10 MG CAPSULE ONE (22:28)
== END 2018-04-17 22:35 | disposition home or self-care (01) ==
LOC: JER 16:43
DX: R10.9 Unspecified abdominal pain (principal); R10.12 Left upper quadrant pain; R10.32 Left lower quadrant pain
CPT/HCPCS: 36415; 74176-TC; 80053; 81003; 85025; 87086; 99282-25

== ENCOUNTER 2018-08-30 13:20 | Emergency (ER) | payer OTHER ==
[2018-08-30 13:25] VITALS: BP 129/52; PULSE 98; TEMP 98; BMI 23.8
[2018-08-30] MEDS ORDERED: METOCLOPRAMIDE HCL INJECTION 10 MG/2 ML VIAL IVPUSH ONE (13:40)
[2018-08-30] MEDS ORDERED: METOCLOPRAMIDE HCL INJECTION 10 MG/2 ML VIAL ONE (13:42)
--- NOTE | 2018-08-30 13:46 | PDOC ---
History of Present Illness - General Chief Complaint: Headache Stated Complaint: HEADACHES Time Seen by Provider: 08/30/18 13:26 History Source: Patient Exam Limitations: No Limitations - History of Present Illness Initial Comments: 08/30/18 13:54 HISTORY OF PRESENT ILLNESS: 28-year-old woman past medical history of tubal ligation presents emergency department for evaluation of right-sided headache radiating to the frontal region. Patient reports the pain started yesterday after plaster ceiling broke off and fell striking her in the front of her head. She denies any loss of consciousness was evaluated by EMS for which she RMA. Patient reports she went home and took some Motrin and aspirin which woke up this morning the pain was worse and it extended from the right side of her head across the front of her head to the left side. She denies any vomiting but reports decreased appetite. Patient with photophobia worsen the right eye. She reports her pain is a 7/10 describes as a throbbing pulsating sensation most severe over her right temporal region. Patient denies any dizziness, lightheadedness, blurry vision, nausea or vomiting. No recent travel or sick contacts. PAST MEDICAL HISTORY: Denies past medical history SURGICAL HISTORY: see HPI ALLERGIES: No known drug allergies REVIEW OF SYSTEMS General/Constitutional: Denies fever or chills. Denies weakness, weight change. HEENT: Denies change in vision. Denies ear pain or discharge. Denies sore throat. Cardiovascular: Denies chest pain or shortness of breath. Respiratory: Denies cough, wheezing, or hemoptysis. Gastrointestinal: Denies nausea, vomiting, diarrhea or constipation. Denies rectal bleeding. Genitourinary: Denies dysuria, frequency, or change in urination. Musculoskeletal: Denies joint or muscle swelling or pain. Denies neck or back pain. Skin and breasts: Denies rash or easy bruising. Neurologic: see HPI Psychiatric: Denies depression or anxiety. Endocrine: Denies increased thirst. Denies abnormal weight change. Hematologic/Lymphatic: Denies anemia, easy bleeding, or history of blood clots. Allergic/Immunologic: Denies hives or skin allergy. Denies latex allergy. PHYSICAL EXAM General Appearance: Well-appearing, appropriately dressed. No apparent distress , no intoxication. HEENT: EOMI, PERRLA, normal ENT inspection, normal voice, TMs normal, pharynx normal. No conjunctival pallor. No photophobia, scleral icterus. Neck: Supple. Trachea midline. No tenderness, rigidity, carotid bruit, stridor , lymphadenopathy, or thyromegaly. Respiratory/Chest: Lungs CTAB. No shortness of breath, chest tenderness, respiratory distress, accessory muscle use. No crackles, rales, rhonchi, stridor , wheezing, dullness Cardiovascular: RRR. S1, S2. No JVD, murmur, bradycardia, tachycardia. Integumentary: Appropriate color, dry, warm. 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 Fully oriented, alert. Appropriate mood/affect. Motor strength 5/5. No appreciable EOM palsy, facial droop or sensory deficit. Photophobia present to the right eye. Able to perform rapid alternating movements without difficulty. Negative Romberg sign. Past History - Past Medical History Allergies/Adverse Reactions: Allergies Allergy/AdvReac Type Severity Reaction Status Date / Time No Known Allergies Allergy Verified 08/30/18 13:25 Home Medications: Ambulatory Orders NK [No Known Home Medication] 08/30/18 Asthma: No Cancer: No Cardiac Disorders: No CVA: No COPD: No Diabetes: No HTN: No Seizures: No Thyroid Disease: No - Surgical History Abdominal Surgery: Yes - Immunization History Immunization Up to Date: No - Suicide/Smoking/Psychosocial Hx Smoking History: Unknown if ever smoked Have you smoked in the past 12 months: No Number of Cigarettes Smoked Daily: 3 Information on smoking cessation initiated: No 'Breaking Loose' booklet given: 10/13/17 Hx Alcohol Use: No Drug/Substance Use Hx: No Substance Use Type: None Hx Substance Use Treatment: No *Physical Exam - Vital Signs Last Vital Signs Temp Pulse Resp BP Pulse Ox 98.0 F 98 H 16 129/52 L 100 08/30/18 13:22 08/30/18 13:22 08/30/18 13:22 08/30/18 13:22 08/30/18 13:22 Medical Decision Making - Medical Decision Making 08/30/18 13:57 A/P: 28-year-old woman with right temporal headache extending across frontal region to the left temporal area Patient most likely with posttraumatic headache but given escalation of symptoms after taking Motrin and aspirin we'll get a head CT to rule out an ICH. Urine Reglan 10 mg IV Benadryl 25 mg IV Toradol 30 mg IV CAT scan of the head 08/30/18 16:08 CT as read by Dr. Concepcion: Ventricles and basal cisterns appear unremarkable. No mass lesion, gross acute infarct or internal hemorrhage are identified. Visualized paranasal sinuses and mastoid air cells are well aerated. Calvarium is intact. Prior to discussion of CT results with the patient reports she felt better and had to milk pickup driver her daughter. His explant to the patient that CT results required before she can be safely discharged. Patient is no her to be found within the emergency department and told the nurse that she was leaving to milk pickup driver her daughter. Patient is no longer in the emergency department for discharge. *DC/Admit/Observation/Transfer Diagnosis at time of Disposition: Headache Qualifiers: Headache type: post-traumatic Headache chronicity pattern: acute headache Intractability: not intractable Qualified Code(s): G44.319 - Acute post- traumatic headache, not intractable - Discharge Dispostion Condition at time of disposition: Fair Decision to Admit order: No - Referrals - Patient Instructions - Post Discharge Activity
[2018-08-30] MEDS ORDERED: KETOROLAC TROMETHAMINE 30 MG/1 ML VIAL IVPUSH ONE (13:48)
[2018-08-30] MEDS ORDERED: SODIUM CHLORIDE 1,000 ML IV STA (13:48)
[2018-08-30] MEDS ORDERED: KETOROLAC TROMETHAMINE 30 MG/1 ML VIAL ONE (14:01)
== END 2018-08-30 15:55 | disposition left against medical advice (07) ==
LOC: JERFT 13:20
PROC: 3E033GC Introduction of Other Therapeutic Substance into Peripheral Vein, Percutaneous Approach (ICD-10-PCS; principal; 2018-08-30)
PROC: 3E0333Z Introduction of Anti-inflammatory into Peripheral Vein, Percutaneous Approach (ICD-10-PCS; 2018-08-30)
PROC: 3E0337Z Introduction of Electrolytic and Water Balance Substance into Peripheral Vein, Percutaneous Approach (ICD-10-PCS; 2018-08-30)
DX: G44.319 Acute post-traumatic headache, not intractable (principal)
CPT/HCPCS: 70450-TC; 84703; 99282-25; J7030

== ENCOUNTER 2019-11-04 20:03 | Emergency (ER) | payer SELFPAY ==
[2019-11-04 20:19] VITALS: BP 116/70; PULSE 86; TEMP 98.3; BMI 23.8
--- NOTE | 2019-11-04 21:02 | PDOC ---
History of Present Illness - General Chief Complaint: Vaginal Sxs Stated Complaint: STD TESTING Time Seen by Provider: 11/04/19 20:38 History Source: Patient Exam Limitations: No Limitations - History of Present Illness Initial Comments: 11/04/19 20:57 Patient is a 29-year-old female with past medical history of ovarian cyst who presents to the ED with complaint of vaginal soreness and concerning discharge that she noticed today. She states she was with a new partner yesterday and would like to get tested for STDs. She denies any lower abdominal pain. She denies any dysuria or hematuria. She states she has significant soreness in her vagina and when she wiped she noticed some green discharge. She has not taken anything for symptoms. She denies any allergies to medications. Past History - Medical History Allergies/Adverse Reactions: Allergies Allergy/AdvReac Type Severity Reaction Status Date / Time No Known Allergies Allergy Verified 08/30/18 13:25 Home Medications: Ambulatory Orders NK [No Known Home Medication] 08/30/18 Asthma: No Cancer: No Cardiac Disorders: No CVA: No COPD: No Diabetes: No HTN: No Seizures: No Thyroid Disease: No - Surgical History Abdominal Surgery: Yes - Reproductive History Is Patient Now?: No - Immunization History Immunization Up to Date: No - Psycho-Social/Smoking History Smoking History: Current every day smoker Have you smoked in the past 12 months: No Number of Cigarettes Smoked Daily: 4 Information on smoking cessation initiated: No 'Breaking Loose' booklet given: 10/13/17 - Substance Abuse Hx (Audit-C & DAST Scrn) How often the patient has a drink containing alcohol: Monthly or less How often the patient has six or more drinks on one occasion: Less than monthly Score: In Men: 4 or > Positive; In Women: 3 or > Positive: 2 Screen Result (Pos requires Nsg. Audit-10AR): Negative In the last yr the pt used illegal drug/Rx for NonMed reason: No Score: Yes response is considered Positive: 0 Screen Result (Positive result requires Nsg. DAST-10): Negative Review of Systems - Review of Systems Comments:: 11/04/19 20:58 - Review of Systems Able to Perform ROS?: Yes Constitutional: No: Fever, Chills, Loss of Appetite, Night Sweats, Weakness HEENTM: No: Eye Pain, Vision changes, Ear Pain, Throat Pain, Throat Swelling, Mouth Pain, Difficulty Swallowing Respiratory: No: Cough, Shortness of Breath, Wheezing, Sputum Production Cardiac (ROS): No: Chest Pain, Chest Tightness, Palpitations, Irregular Heart Beat, Edema ABD/GI: No: Nausea, Vomiting, Abdominal Pain, Diarrhea : No Dysuria, No Hematuria, No Frequency, No Urgency, positive: Vaginal soreness and discharge Musculoskeletal: No: Muscle Pain, Back Pain, Joint Pain, Muscle Weakness, Neck Pain Integumentary: No: Lesions, Rash Neurological: No: Headache, Numbness, Tingling, Weakness, Speech Difficulties *Physical Exam - Vital Signs Last Vital Signs Temp Pulse Resp BP Pulse Ox 98.3 F 86 19 116/70 100 11/04/19 20:15 11/04/19 20:15 11/04/19 20:15 11/04/19 20:15 11/04/19 20:15 - Physical Exam 11/04/19 20:58 - Physical Exam General Appearance: Nourished, Appropriately Dressed, No Distress HEENT: EOMI, Normal Voice, Hearing Grossly Normal Neck: Supple, No Lymphadenopathy (R), No Lymphadenopathy (L), No Rigidity, No Decreased range of motion Respiratory/Chest: Lungs Clear, Normal Breath Sounds. No Respiratory Distress, No Accessory Muscle Use Cardiovascular: Regular Rhythm, Regular Rate, S1, S2 Gastrointestinal/Abdominal: Normal Bowel Sounds, Soft. Non-tender, No Guarding, No Rebound, No Rigidity; no reproducible abdominal tenderness to palpation. 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 Clear discharge at the cervical office appreciated. Nonfriable cervix appreciated. No foul odors appreciated. No CMT. No suprapubic or adnexal tenderness or masses appreciated. Bilateral inferior labial minora with ulcerations appreciated with significant tenderness to palpation. No vesicles appreciated. No drainage appreciated. Musculoskeletal: Normal Inspection. No Decreased Range of Motion Extremity: Normal Capillary Refill, Normal Inspection Integumentary: Normal Color, Dry. No Rash Neurologic: spine nurse II-XII NML intact, Fully Oriented, Alert, Normal Mood/Affect, Normal Response ED Treatment Course - ADDITIONAL ORDERS Additional order review: 11/04/19 21:32 Laboratory Tests 11/04/19 20:50 Urine Color Yellow Urine Appearance Clear Urine pH 5.5 Ur Specific Adrian 1.034 Urine Protein Trace Urine Glucose (UA) Negative Urine Ketones 1+ H Urine Blood 2+ H Urine Nitrite Negative Urine Bilirubin Negative Urine Urobilinogen 0.2 Ur Leukocyte Esterase 1+ H Urine WBC (Auto) 190 Urine Casts (Auto) 8 U Epithel Cells (Auto) 9 Urine Bacteria (Auto) 119 Urine HCG, Qual Negative Medical Decision Making - Medical Decision Making 11/04/19 21:00 Assessment: Patient is a 29-year-old female with vaginal ulcerations and concern for STD. Plan: -Gonorrhea, chlamydia, syphilis RPR, HIV and HSV 1 and 2 tests ordered -Urinalysis, urine culture and urine ordered -We will not treat for gonorrhea or chlamydia secondary to low suspicion based on exam. Patient has been made aware that if she is positive for GC or chlamydia she will have to return for treatment or get a prescription sent to her pharmacy. She is okay with this plan. -Will reassess 11/04/19 21:32 The patient has been made aware that her urinalysis does not appear to have a UTI but we will wait for the urine culture for further evaluation. She has been made aware that we will call her with the remaining results. She understands and agrees with this treatment plan and she is stable for discharge. Discharge - Discharge Information Problems reviewed: Yes Clinical Impression/Diagnosis: Concern about STD in female without diagnosis, Vaginal sore Condition: Stable Disposition: HOME - Follow up/Referral - Patient Discharge Instructions Patient Printed Discharge Instructions: DI for Vaginal Discharge Additional Instructions: We have tested you for multiple STDs including gonorrhea, chlamydia, HIV, herpes and syphilis. The results will take several days to become available. Avoid any sexual activity until the results become available. Get plenty rest and drink plenty of fluids. It does not appear you have a urinary tract infection but we will wait for the urine culture to determine further. - Post Discharge Activity Work/Back to School Note: Back to Work
[2019-11-04 21:25] LABS: HCG,QUALITATIVE URINE Negative
[2019-11-04 21:26] LABS: EPI CELLS 9 /uL (0-25.1); HYALINE CASTS 8 /uL (0-3.1); PH,URINE 5.5 (5.0-8.0); URINE APPEARANCE CLEAR; URINE BACTERIA 119 /uL (0-1359); URINE BILIRUBIN NEGATIVE (NEGATIVE); URINE COLOR YELLOW; URINE GLUCOSE (UA) NEGATIVE (NEGATIVE); URINE KETONE 1+ (NEGATIVE); URINE LEUK ESTERASE 1+ (NEGATIVE); URINE NITRITE NEGATIVE (NEGATIVE); URINE PROTEIN TRACE (NEGATIVE); URINE UROBILINOGEN 0.2 mg/dL (0.2-1.0); URINE WBC 190 /uL (0-25.8)
[2019-11-04 23:17] LABS: URINE RBC 122 /uL (0-23.9)
== END 2019-11-04 21:37 | disposition home or self-care (01) ==
LOC: JERFT 20:03
DX: N76.5 Ulceration of vagina (principal); Z11.3 Encounter for screening for infections with a predominantly sexual mode of transmission
CPT/HCPCS: 36415; 81003; 84703; 86695; 86696; 86780; 87086; 87389; 87491; 87591; 99283-25